=== PATIENT | female | born 1960 | race Caucasian/White ===

== ENCOUNTER 2018-01-01 12:07 | Day surgery (SDC) | payer MEDICARE ==
[2018-01-01] MEDS ORDERED: Xylocaine 1% Vial 30 ML PF IJ ONE (12:08)
[2018-01-01] MEDS ORDERED: Marcaine 0.5% SDV 10 ML IJ ONE (12:08)
[2018-01-01] MEDS ORDERED: DIPRIVAN 200 MG/20 ML IV ONE (12:08)
[2018-01-01] MEDS ORDERED: Lactated Ringers 1,000 ML IV ONE (14:54)
--- NOTE | 2018-01-01 16:30 | XRAY ---
37 seconds fluoroscopy time in surgery for left L3-4 MBB.
--- NOTE | 2018-01-02 09:10 | OP ---
DATE OF PROCEDURE: 01/01/2018 1349 SURGEON: Pro Monae D.O. PREOPERATIVE DIAGNOSIS: Degenerative lumbar spine disease, spondylosis, low back pain. POSTOPERATIVE DIAGNOSIS: Degenerative lumbar spine disease, spondylosis, low back pain. PROCEDURE PERFORMED: Left L4-L3 medial branch block under fluoroscopic guidance. DESCRIPTION OF THE PROCEDURE: The patient was taken to the operating room and placed in the prone position on the table. Skin at the injection site was prepped and draped in sterile fashion. Under fluoroscopy, bony anatomy of the targeted injection site was visualized. Induction agent was given as per anesthesia while vital signs were monitored. Local anesthetic agent used is 11 cc of 1% preservative free lidocaine and 1 cc of 0.5% preservative-free Marcaine were injected into each of the targeted medial branch nerve to anesthetize the skin and the subcutaneous tissue through the injection site. Under fluoroscopic guidance, a #20 gauge standard spinal needle was advanced into the target medial branch through the oblique approach. After the needle was being removed, the skin was cleansed with alcohol and then a bandage was applied. No complications or adverse consequences were observed. The patient was returned to the holding area until stabilized before discharge to home. Preoperative pain level is 10 out of 10 and postoperative pain level is 0 out of 10. The patient will be followed up within ten days after the injection for re-evaluation.
--- NOTE | 2018-01-02 13:00 | XRAY ---
Indication: Left L3-L4 MBB. Intraoperative fluoroscopy was provided for 37 seconds. 2 digital spot images submitted for interpretation demonstrates posterior spinal needle tips projecting over the left L3-L4 and L4-L5 facets. Correlate with intraoperative findings/report. Incidental L4-L5 intervertebral spacer.
== END 2018-01-01 14:25 | disposition home or self-care (01) ==
LOC: SDC-PAIN 12:07
PROVIDERS: ATTEND Internal Medicine
DX: M96.1 Postlaminectomy syndrome, not elsewhere classified (principal); M47.816 Spondylosis without myelopathy or radiculopathy, lumbar region; M54.5 Low back pain; M54.16 Radiculopathy, lumbar region
CPT/HCPCS: 64493; 64494; 72020; 77003; J2001; J2704

== ENCOUNTER 2018-03-10 13:59 | Emergency (ER) | payer MEDICARE ==
--- NOTE | 2018-03-10 14:44 | ERPHSYRPT ---
- History of Present Illness Time Seen by Provider: 03/10/18 14:39 Source: patient, other Exam Limitations: no limitations Patient Subjective Stated Complaint: pt her for a headache to right side of head for over 3 week ago, was seen at [facility] for same thing on , she states pain not easing, Triage Nursing Assessment: pt alert, skin w/d/p,resp easy, no edema noted,pt denies any ear pain now but was given ear drops Physician History: The patient is a 57-year-old female with a friend complaining of a right-sided headache that began 3 weeks ago. She has a history of migraine headaches and takes propranolol as preventative. Last she went to the [facility] ER for the headache and was given morphine, Phenergan, and Toradol with improvement. But by the next day her headache had returned. She states she also had a head CT that was negative. She denies light sensitivity or nausea. She was scheduled to have an appointment with her primary medical doctor on Saturday that he is now out of town. Her past medical history is significant for migraine headaches, chronic back pain, anxiety, depression, edema, and hypothyroidism. Timing/Duration: week(s) (3), gradual onset Quality: aching Head Pain Location: temporal (right) Severity of Pain-Max: severe Severity of Pain-Current: severe Recent Head Trauma: chronic headaches Modifying Factors: Improves With: medication Associated Symptoms: denies symptoms Previous symptoms: different symptoms (this headache is different than headaches in the past.) Allergies/Adverse Reactions: No Known Drug Allergies Allergy (Verified 03/10/18 14:36) Home Medications: Brexpiprazole [Rexulti] 2 mg PO DAILY 06/19/17 [History] Fluticasone Propionate [Flonase NASAL] 2 spray NS DAILY 06/19/17 [History] Levothyroxine Sodium 50 Mcg [Synthroid 50 Mcg] 50 mcg PO DAILY 06/19/17 [ History] Omeprazole 20 MG [Prilosec 20 mg] 20 mg PO DAILY 06/19/17 [History] Potassium Chloride 10 Meq Tab* [Klor Con 10 MEQ] 10 meq PO DAILY 06/19/17 [ History] Propranolol HCl 80 mg PO DAILY 06/19/17 [History] Torsemide 20 mg [Demadex 20 mg] 20 mg PO DAILY 06/19/17 [History] Vilazodone Hydrochloride [Viibryd] 40 mg PO DAILY 06/19/17 [History] Gabapentin [Neurontin] 1 - 2 tab PO TID 08/09/17 [History] Tizanidine HCl 4 mg [Zanaflex 4 MG] 4 mg PO HS 10/14/17 [History] Tramadol HCl 50 mg [Ultram 50 mg] 50 mg PO Q12H PRN PRN 11/19/17 [History] Phentermine HCl [Adipex-P] 37.5 mg PO DAILY 12/24/17 [History] Hx Influenza Vaccination/Date Given: Yes Hx Pneumococcal Vaccination/Date Given: No Immunizations Up to Date: Yes - Review of Systems Constitutional: No Fever, No Chills Eyes: No Symptoms Ears, Nose, & Throat: No Symptoms Respiratory: No Cough, No Dyspnea Cardiac: No Chest Pain, No Edema, No Syncope Abdominal/Gastrointestinal: No Abdominal Pain, No Nausea, No Vomiting, No Diarrhea Genitourinary Symptoms: No Dysuria Musculoskeletal: No Back Pain, No Neck Pain Skin: No Rash Neurological: Headache Psychological: No Symptoms Endocrine: No Symptoms Hematologic/Lymphatic: No Symptoms Immunological/Allergic: No Symptoms All Other Systems: Reviewed and Negative - Past Medical History Pertinent Past Medical History: Yes Neurological History: Migraines Musculoskeletal History: Other Psycho-Social History: Anxiety, Depression Other Medical History: chronic back pains - Past Surgical History Past Surgical History: Yes Gastrointestinal: Cholecystectomy Musculoskeletal: Other Female Surgical History: Hysterectomy Other Surgical History: back,neck and wrist surg - Social History Smoking Status: Never smoker Exposure to second hand smoke: Yes Drug Use: none - Female History Hx Last Menstrual Period: post Hx Now: No - Nursing Vital Signs Nursing Vital Signs: Initial Vital Signs Temperature 97.4 F 03/10/18 14:27 Pulse Rate 97 H 03/10/18 14:27 Respiratory Rate 18 03/10/18 14:27 Blood Pressure 133/58 03/10/18 14:27 O2 Sat by Pulse Oximetry 96 03/10/18 14:27 Pain Scale Pain Intensity 7 - Physical Exam General Appearance: mild distress Eye Exam: PERRL/EOMI Ears, Nose, Throat Exam: normal ENT inspection, moist mucous membranes Neck Exam: normal inspection, supple, full range of motion, No meningismus Respiratory Exam: normal breath sounds, lungs clear Cardiovascular Exam: regular rate/rhythm, normal heart sounds Gastrointestinal/Abdominal Exam: soft, No tenderness, No distention Back Exam: normal inspection, normal range of motion Extremity Exam: normal inspection, normal range of motion Mental Status Exam: alert, oriented x 3, cooperative rn renal Exam: normal speech, PERRL, No facial droop Coordination/Gait Exam: normal finger to nose Motor/Sensory Exam: no motor deficit, no sensory deficit Skin Exam: normal color, warm, dry, No rash SpO2 Interpretation: normal SpO2: 96 Oxygen Delivery: Room Air Ordered Tests: Medication Summary Discontinued Medications Generic Name Dose Route Start Last Admin Trade Name Freq PRN Reason Stop Dose Admin Diphenhydramine HCl 50 mg 03/10/18 15:11 03/10/18 15:26 Benadryl 50 Mg/Ml IV 03/10/18 15:12 Not Given STAT ONE Diphenhydramine HCl Confirm 03/10/18 15:21 Benadryl 50 Mg/Ml Administered 03/10/18 15:22 Dose 50 mg .ROUTE .STK-MED ONE Diphenhydramine HCl 50 mg 03/10/18 15:24 03/10/18 15:27 Benadryl 50 Mg/Ml IM 03/10/18 15:25 50 mg STAT ONE Administration Ketorolac Tromethamine 60 mg 03/10/18 15:10 03/10/18 15:23 Toradol 30 Mg Injection IM 03/10/18 15:11 60 mg STAT ONE Administration Ketorolac Tromethamine Confirm 03/10/18 15:21 Toradol 30 Mg Injection Administered 03/10/18 15:22 Dose 60 mg .ROUTE .STK-MED ONE Promethazine HCl 50 mg 03/10/18 15:11 03/10/18 15:27 Phenergan 25 Mg Inj IV 03/10/18 15:12 Not Given STAT ONE Promethazine HCl Confirm 03/10/18 15:21 Phenergan 25 Mg Inj Administered 03/10/18 15:22 Dose 50 mg .ROUTE .STK-MED ONE Promethazine HCl 50 mg 03/10/18 15:23 03/10/18 15:27 Phenergan 25 Mg Inj IM 03/10/18 15:24 50 mg STAT ONE Administration - Progress Progress: improved Air Movement: good Progress Note: 03/10/18 15:08 Pt declines hadol 2 mg IV. Pt accepts phenergan 50 mg, toradol 60 mg, and benadryl 50 mg by IM. 03/10/18 15:09 Reviewed [facility] ER note. Head CT was negative. Blood Culture(s) Obtained: No Antibiotics given: No Counseled pt/family regarding: diagnosis, need for follow-up - Departure Time of Disposition: 15:09 Departure Disposition: Home Clinical Impression: Headache, migraine, intractable, with status migrainosus Condition: Stable Critical Care Time: No Referrals: PRITESH JAMES [Primary Care Provider] - Additional Instructions: You have an intractable headache that has been difficult to treat. Today you were given Toradol 60 mg, Phenergan 50 mg, and Benadryl 50 mg by IM in the ER. Go home and rest in the quiet dark room. Follow-up with your primary medical doctor later this week.
[2018-03-10] MEDS ORDERED: TORAdol 30 mg Injection IM ONE (15:10)
[2018-03-10] MEDS ORDERED: Phenergan 25 MG INJ IV ONE (15:11)
[2018-03-10] MEDS ORDERED: BENADRYL 50 MG/ML IV ONE (15:11)
[2018-03-10] MEDS ORDERED: BENADRYL 50 MG/ML ONE (15:21)
[2018-03-10] MEDS ORDERED: TORAdol 30 mg Injection ONE (15:21)
[2018-03-10] MEDS ORDERED: Phenergan 25 MG INJ ONE (15:21)
[2018-03-10] MEDS ORDERED: Phenergan 25 MG INJ IM ONE (15:23)
[2018-03-10] MEDS ORDERED: BENADRYL 50 MG/ML IM ONE (15:24)
[2018-03-10 15:58] VITALS: BP 94/67; PULSE 94; O2SAT 95
== END 2018-03-10 15:58 | disposition home or self-care (01) ==
LOC: ED 13:59
DX: G43.911 Migraine, unspecified, intractable, with status migrainosus (principal); Z79.899 Other long term (current) drug therapy
CPT/HCPCS: 96372; 99284; J1200; J1885; J2550

== ENCOUNTER 2018-05-28 08:12 | Day surgery (SDC) | payer MEDICARE ==
[2018-05-28] MEDS ORDERED: LIDOCAINE HCL 2% 100 MG/5 ML IJ ONE (08:13)
[2018-05-28] MEDS ORDERED: DIPRIVAN 200 MG/20 ML IV ONE (08:13)
[2018-05-28] MEDS ORDERED: Depo-Medrol 40 MG/ML IM ONE (08:13)
[2018-05-28] MEDS ORDERED: Lactated Ringers 1,000 ML IV ONE (10:08)
--- NOTE | 2018-05-28 13:22 | XRAY ---
Indication: Bilateral L4-S1 MBB. Intraoperative fluoroscopy was provided for 24 seconds. 2 digital spot images submitted for interpretation demonstrates posterior spinal needle tips projecting over the expected course of the left and right L4, L5, and S1 nerve roots. Correlate with intraoperative findings/report. Incidental L4-L5 intervertebral spacer.
--- NOTE | 2018-05-28 13:25 | XRAY ---
24 seconds fluoroscopy time in surgery for L4-S1 injection bilaterally.
== END 2018-05-28 10:15 | disposition home or self-care (01) ==
LOC: SDC-PAIN 08:12
PROVIDERS: ATTEND Psychiatry & Neurology Pain Medicine
DX: M54.5 Low back pain (principal); M47.816 Spondylosis without myelopathy or radiculopathy, lumbar region
CPT/HCPCS: 64493; 64494; 72100; 76000; J1030; J2704